=== PATIENT | male | born 1950 | race Caucasian/White ===

== ENCOUNTER 2017-04-03 14:42 | Emergency (ER) | payer MEDICARE, OTHER ==
[2017-04-03] MEDS ORDERED: SODIUM CHLORIDE 0.9% FLUSH 10 ML FLUSH IV FLUSH (15:00)
[2017-04-03] MEDS: diphenhydrAMINE HCL 50 MG/ML VIAL IVP (15:02)
[2017-04-03] MEDS: methylPREDNISolone SOD SUCC 125 MG/2 ML VIAL IV PUSH (15:03)
[2017-04-03] MEDS: FAMOTIDINE 20 MG/2 ML VIAL IV PUSH (15:03)
[2017-04-03] MEDS: SODIUM CHLOR 0.9% 1000 ML INJ 1,000 ML IV (15:04)
[2017-04-03] MEDS: EPINEPHrine HCL (1:1000) 1 MG/ML VIAL IM (15:04)
[2017-04-03 15:22] LABS: AUTOMATED NEUTROPHIL # 5.5 TH/MM3 (1.8-7.7); BASOPHIL # 0.1 TH/MM3 (0-0.2); EOSINOPHIL # 0.2 TH/MM3 (0-0.4); EOSINOPHIL % 2.1 % (0.0-4.0); HEMATOCRIT 48.1 % (39.0-51.0); HEMO FLAGS DIFF FINAL; HEMOGLOBIN 15.5 GM/DL (13.0-17.0); LYMPH % 31.5 % (9.0-44.0); MEAN CELL VOLUME 86.7 FL (80.0-100.0); MEAN CORPUSCULAR HEMOGLOBIN 27.9 PG (27.0-34.0); MEAN CORPUSCULAR HGB CONC 32.2 % (32.0-36.0); MEAN PLATELET VOLUME 9.3 FL (7.0-11.0); MONO % 6.1 % (0.0-8.0); MONOCYTE # 0.6 TH/MM3 (0-0.9); NEUT % 59.3 % (16.0-70.0); PLATELET COUNT 255 TH/MM3 (150-450); RED BLOOD COUNT 5.55 MIL/MM3 (4.50-5.90); RED CELL DISTRIBUTION WIDTH 12.5 % (11.6-17.2); WHITE BLOOD COUNT 9.4 TH/MM3 (4.0-11.0)
[2017-04-03 15:30] LABS: CHLORIDE 105 MEQ/L (98-107); POTASSIUM 3.7 MEQ/L (3.5-5.1); SODIUM (NA) 141 MEQ/L (136-145)
[2017-04-03 15:33] LABS: ANION GAP 8 MEQ/L (5-15); BICARBONATE 28.1 MEQ/L (21.0-32.0); BLOOD UREA NITROGEN 20 MG/DL (7-18); CALCIUM 8.8 MG/DL (8.5-10.1); GLUCOSE,RANDOM 110 MG/DL (74-106)
[2017-04-03 15:37] LABS: GLOMERULAR FILTRATION RATE 67 ML/MIN (>89)
== END 2017-04-03 16:27 | disposition home or self-care (01) ==
LOC: PHED 14:42
DX: R21 Rash and other nonspecific skin eruption (principal); T78.40XA Allergy, unspecified, initial encounter
CPT/HCPCS: 80048; 85025; 96361; 96372; 96374; 96375; 99285-25